=== PATIENT | female | born 1990 ===

== ENCOUNTER 2016-08-16 14:29 | Emergency (ER) | payer MEDICAID ==
--- NOTE | 2016-08-16 15:20 | Emergency Department Record ---
History of Present Illness - General Chief Complaint: Cough Stated Complaint: COUGH/KARAN Time Seen by Provider: 08/16/16 15:18 Mode of Arrival: Ambulatory - History of Present Illness Initial Comments: 4-5 days with hoarse voice and cough dry and brown sputum, smokes less than one ppd, chest hurts with cough and whole body aches and no vomiting, No medical problems PCP Dr. Luong in [place]. Boy friend has similiar symptoms but not as bad. MD Complaint: Cough Onset/Timin -: Days(s) Consistency: Constant - Related Data Previous Rx's Medication Instructions Recorded Azithromycin [Zithromax] 250 mg PO DAILY #6 tab 08/16/16 Naproxen [Naprosyn] 500 mg PO Q12H #20 tab. 08/16/16 Allergies Allergy/AdvReac Type Severity Reaction Status Date / Time No Known Drug Allergies Allergy Verified 08/16/16 14:44 Travel Screening - Travel/Exposure Within Last 30 Days Have you traveled within the last 30 days?: No Review of Systems Reviewed: No additional complaints except as noted below Constitutional: Reports: As per HPI. Denies: Chills, Fever, Malaise, Night sweats, Weakness, Weight change Eyes: Reports: As per HPI. Denies: Eye discharge, Eye pain, Photophobia, Vision change ENT: Reports: As per HPI, Congestion. Denies: Dental pain, Ear pain, Epistaxis , Hearing loss, Throat pain Respiratory: Reports: As per HPI, Cough. Denies: Dyspnea, Hemoptysis, Stridor, Wheezes Cardiovascular: Reports: As per HPI, Chest pain. Denies: Arrhythmia, Dyspnea on exertion, Edema, Murmurs, Orthopnea, Palpitations, Paroxysmal nocturnal dyspnea, Rheumatic Fever, Syncope Endocrine: Reports: As per HPI. Denies: Fatigue, Heat or cold intolerance, Polydipsia, Polyuria Gastrointestinal: Reports: As per HPI. Denies: Abdominal pain, Constipation, Diarrhea, Hematemesis, Hematochezia, Melena, Nausea, Vomiting Genitourinary: Reports: As per HPI. Denies: Abnormal menses, Discharge, Dyspareunia, Dysuria, Frequency, Hematuria, Incontinence, Retention, Urgency Musculoskeletal: Reports: As per HPI. Denies: Arthralgia, Back pain, Gout, Joint swelling, Myalgia, Neck pain Skin: Reports: As per HPI. Denies: Bruising, Change in color, Change in hair/ nails, Lesions, Pruritus, Rash Neurological: Reports: As per HPI. Denies: Abnormal gait, Confusion, Headache, Numbness, Paresthesias, Seizure, Tingling, Tremors, Vertigo, Weakness Psychiatric: Reports: As per HPI. Denies: Anxiety, Auditory hallucinations, Depression, Homicidal thoughts, Suicidal thoughts, Visual hallucinations Hematological/Lymphatic: Reports: As per HPI. Denies: Anemia, Blood Clots, Easy bleeding, Easy bruising, Swollen glands Past Medical History - SOCIAL HISTORY Smoking Status: Current every day smoker Alcohol Use: Occassional Drug Use: None - RESPIRATORY Hx Respiratory Disorders: No - CARDIOVASCULAR Hx Cardio Disorders: No - NEURO Hx Neuro Disorders: No - GI Hx GI Disorders: No - Hx Genitourinary Disorders: No - ENDOCRINE Hx Endocrine Disorders: No - MUSCULOSKELETAL Hx Musculoskeletal Disorders: No - PSYCH Hx Psych Problems: Yes Hx Anxiety: Yes - HEMATOLOGY/ONCOLOGY Hx Hematology/Oncology Disorders: No Family Medical History Any Significant Family History?: Yes *Cancer Comment: Aunt-colon cancer, cousins-colon cancer Hx Diabetes: Father, Grandparents Physical Exam - General General Appearance: Alert, Oriented x3, Cooperative, No acute distress - Head Head exam: Normal inspection - Eye Eye exam: Normal appearance, PERRL Pupils: Normal accommodation - ENT ENT exam: Normal exam, Mucous membranes moist, Normal external ear exam, Normal orophraynx, TM's normal bilaterally Ear exam: Normal external inspection. negative: External canal tenderness Nasal Exam: Normal inspection. negative: Discharge, Sinus tenderness Mouth exam: Normal external inspection, Tongue normal Teeth exam: Normal inspection. negative: Dental caries Throat exam: Normal inspection. negative: Tonsillar erythema, Tonsillar exudate - Neck Neck exam: Normal inspection, Full ROM. negative: Tenderness - Respiratory Respiratory exam: Normal lung sounds bilaterally. negative: Respiratory distress - Cardiovascular Cardiovascular Exam: Regular rate, Normal rhythm, Normal heart sounds, Other ( chest pain is reproducible on palpation and rotation of her shoulders) - GI/Abdominal GI/Abdominal exam: Soft, Normal bowel sounds. negative: Tenderness - Rectal Rectal exam: Deferred - exam: Deferred - Extremities Extremities exam: Normal inspection, Full ROM, Normal capillary refill. negative: Tenderness - Back Back exam: Reports: Normal inspection, Full ROM. Denies: Muscle spasm, Rash noted, Tenderness - Neurological Neurological exam: Alert, Normal gait, Oriented X3, Reflexes normal - Psychiatric Psychiatric exam: Normal affect, Normal mood - Skin Skin exam: Dry, Intact, Normal color, Warm Course Vital Signs 08/16/16 14:37 Temperature 98.1 F Pulse Rate 129 H Respiratory 16 Rate Blood Pressure 129/89 Pulse Ox 99 Medical Decision Making - Data Complexity MDM Data: Labs Ordered and/or Reviewed, X-Ray Ordered and/or Reviewed (chest neg ), EKG Ordered and/or Reviewed (no acute changes) - Lab Data Result diagrams: 08/16/16 14:55 08/16/16 14:55 Disposition Clinical Impression: Bronchitis Disposition: Home, Self-Care Condition: (1) Good Instructions: Acute Bronchitis (ED) Additional Instructions: follow up with family in 2 5 days use robitussin MARILYN cough syrup 10 ml every 4 hours Prescriptions: Naproxen [Naprosyn] 500 mg PO Q12H #20 tab. Azithromycin [Zithromax] 250 mg PO DAILY #6 tab Forms: Patient Portal Access Time of Disposition: 17:14
[2016-08-16] MEDS ORDERED: KETOROLAC 30 MG/ML VIAL IVP ONE (15:38)
[2016-08-16] MEDS ORDERED: LORAZEPAM 2 MG/ML VIAL IV ONE (15:38)
[2016-08-16 15:39] LABS: HEMATOCRIT 42.6 % (35.0-47.0); HEMOGLOBIN 14.6 gm/dl (11.6-16.0); MEAN CELL VOLUME 87.5 fl (81-97); MEAN CORPUSCULAR HGB CONC 34.3 g/dl (32-36); MEAN PLATELET VOLUME 10.8 fl (7.4-10.4); PLATELET COUNT 231 K/uL (130-400); RED BLOOD COUNT 4.87 M/uL (3.80-5.40); RED CELL DISTRIBUTION WIDTH 12.6 % (11.5-14.5); WHITE BLOOD COUNT W/O DIFF 4.4 K/uL (4.2-12.2)
[2016-08-16 15:52] LABS: ANION GAP 17.7 (7-16); BLOOD UREA NITROGEN 13 mg/dL (7-17); CARBON DIOXIDE 24.3 mmol/L (22-30); CREATININE 0.6 mg/dL (0.52-1.04); EST GLOMERULAR FILTRATION RATE > 60 ml/min; GLUCOSE,RANDOM 108 mg/dL (70-110)
[2016-08-16 15:53] LABS: PLATELET ESTIMATE NORMAL (NORMAL)
--- NOTE | 2016-08-21 10:25 | RADIOLOGY REPORT ---
EXAM: CHEST, TWO VIEWS HISTORY: PRODUCTIVE COUGH FOR ONE DAY WITH CHEST TIGHTNESS AND DIFFICULTY IN BREATHING. TECHNIQUE: Upright PA and lateral views of the chest were obtained. Comparison: None. FINDINGS: The cardiomediastinal silhouette is normal in size and configuration. The pulmonary vasculature is normal in caliber. The lungs and pleural spaces are clear. IMPRESSION: NEGATIVE CHEST EXAMINATION. JOB NUMBER: [id number] MTDD
== END 2016-08-16 17:30 | disposition home or self-care (01) ==
LOC: ER 14:29
DX: J20.9 Acute bronchitis, unspecified (principal); R53.83 Other fatigue; R07.89 Other chest pain; R06.00 Dyspnea, unspecified; F17.200 Nicotine dependence, unspecified, uncomplicated
CPT/HCPCS: 99284 ×2; 96374; 96375; 80048; 85027; 71020; 93005; 93010; J1885; J2060

== ENCOUNTER 2016-10-15 16:02 | Emergency (ER) | payer MEDICAID ==
--- NOTE | 2016-10-15 16:41 | Emergency Department Record ---
History of Present Illness - General Chief complaint: ENT Stated complaint: SINUS/CHEST CONGESTION/COUGH Time Seen by Provider: 10/15/16 16:35 Source: Patient Mode of Arrival: Ambulatory Limitations: No limitations - History of Present Illness Initial comments: 25 yo female presents with cough, congestion, mild sore throat starting night. the cough is non productive. NO nausea, vomiting or diarrhea. No rash. Subjective low grade fevers. She is a very rare social smoker. No control. She has some pressure in the sinuses. PCP Dr Luong. complaint: Other (Cough) Onset/Timin -: Days(s) Severity: Moderate Severity scale (1-10): 6 Quality: Aching Improves with: None Worsens with: None Context- Ear: Recent illness Associated Symptoms: Cough - Related Data Home Medications Medication Instructions Recorded Confirmed Last Taken Multivit with Calcium,Iron,Min 1 each PO DAILY 10/15/16 10/15/16 1 Day Ago [Multiple Vitamins For Women] Previous Rx's Medication Instructions Recorded Azithromycin [Zithromax] 250 mg PO DAILY #6 tab 10/15/16 Allergies Allergy/AdvReac Type Severity Reaction Status Date / Time No Known Drug Allergies Allergy Verified 10/15/16 16:19 Travel Screening - Travel/Exposure Within Last 30 Days Have you traveled within the last 30 days?: No - Travel/Exposure Within Last Year Have you traveled outside the [place] in the last year?: No - Additonal Travel Details Have you been exposed to anyone with a communicable illness?: No - Travel Symptoms Symptom Screening: None Review of Systems Constitutional: Reports: Chills, Fever, Malaise Eyes: Denies: Eye discharge, Eye pain ENT: Reports: Congestion, Ear pain (mild pressure), Throat pain Respiratory: Reports: Cough. Denies: Dyspnea, Hemoptysis, Stridor, Wheezes Cardiovascular: Denies: Chest pain, Palpitations, Syncope Endocrine: Denies: Fatigue, Polydipsia Gastrointestinal: Denies: Abdominal pain, Diarrhea, Nausea, Vomiting Genitourinary: Denies: Dysuria, Urgency Musculoskeletal: Denies: Arthralgia, Back pain, Joint swelling, Myalgia, Neck pain Skin: Denies: Bruising, Change in color, Rash Neurological: Denies: Confusion, Headache, Numbness, Weakness Psychiatric: Denies: Anxiety Hematological/Lymphatic: Denies: Blood Clots, Easy bleeding, Easy bruising, Swollen glands Past Medical History - SOCIAL HISTORY Smoking Status: Current every day smoker Alcohol Use: Occassional Drug Use: None - RESPIRATORY Hx Respiratory Disorders: No - CARDIOVASCULAR Hx Cardio Disorders: No - NEURO Hx Neuro Disorders: No - GI Hx GI Disorders: No - Hx Genitourinary Disorders: No - ENDOCRINE Hx Endocrine Disorders: No - MUSCULOSKELETAL Hx Musculoskeletal Disorders: No - PSYCH Hx Psych Problems: Yes Hx Anxiety: Yes - HEMATOLOGY/ONCOLOGY Hx Hematology/Oncology Disorders: No Family Medical History Any Significant Family History?: Yes *Cancer Comment: Aunt-colon cancer, cousins-colon cancer Hx Diabetes: Father, Grandparents Physical Exam - General General Appearance: Alert, Oriented x3, Cooperative, No acute distress Limitations: No limitations - Eye Eye exam: Normal appearance, PERRL. negative: Conjunctival injection, Periorbital swelling - ENT ENT exam: Normal exam, Mucous membranes moist, Normal orophraynx, TM's normal bilaterally Ear exam: Normal external inspection. negative: External canal tenderness Nasal Exam: Normal inspection. negative: Discharge, Sinus tenderness Mouth exam: Normal external inspection, Tongue normal Teeth exam: Normal inspection. negative: Dental caries Throat exam: Normal inspection. negative: Tonsillar erythema, Tonsillar exudate - Neck Neck exam: Normal inspection, Full ROM. negative: Lymphadenopathy, Tenderness - Respiratory Respiratory exam: Normal lung sounds bilaterally. negative: Prolonged expiratory, Respiratory distress, Rhonchi, Stridor, Wheezes - Cardiovascular Cardiovascular Exam: Regular rate, Normal rhythm, Normal heart sounds - GI/Abdominal GI/Abdominal exam: Soft. negative: Tenderness - Rectal Rectal exam: Deferred - exam: Deferred - Extremities Extremities exam: Normal inspection, Full ROM, Normal capillary refill. negative: Pedal edema, Tenderness - Back Back exam: Reports: Normal inspection, Full ROM. Denies: Muscle spasm, Rash noted, Tenderness - Neurological Neurological exam: Alert, Oriented X3 - Psychiatric Psychiatric exam: Normal affect, Normal mood - Skin Skin exam: Dry, Intact, Normal color, Warm. negative: Cyanosis, Diaphoretic, Erythema Course Vital Signs 10/15/16 16:11 Temperature 97.9 F Pulse Rate 98 H Respiratory 20 Rate Blood Pressure 124/86 Pulse Ox 97 - Reevaluation(s) Reevaluation #1: Vitals reviewed No hypoxia or fever 10/15/16 16:43 Reevaluation #2: Influenza is negative 10/15/16 17:28 Disposition Disposition: Discharge Clinical Impression: Bronchitis Disposition: Home, Self-Care Condition: (1) Good Instructions: Acute Bronchitis (ED) Additional Instructions: Rest and stay well hydrated Call your doctor tomorrow for close follow up Prescriptions: Azithromycin [Zithromax] 250 mg PO DAILY #6 tab Forms: Patient Portal Access Time of Disposition: 17:30
[2016-10-15 17:08] LABS: INFLUENZA A NEGATIVE (NEGATIVE); INFLUENZA B NEGATIVE (NEGATIVE)
== END 2016-10-15 18:09 | disposition home or self-care (01) ==
LOC: ER 16:02
DX: J20.9 Acute bronchitis, unspecified (principal)
CPT/HCPCS: 87400; 99282